=== PATIENT | male | born 1940 | race Caucasian/White ===

== ENCOUNTER → 2017-12-23 | Outpatient (CLI) | payer OTHER ==
[~2017-12-23] MED LIST: GADAVIST IV PRN
--- NOTE | 2017-12-23 15:16 | DIAGNOSTIC IMAGING REPORT ---
CERVICAL SPINE COMBO CLINICAL HISTORY: 77 years-old Male presenting with GAIT/FALLS,PROSTATE CA HX METS,ENCEPHALOPATHY. TECHNIQUE: Multisequence, multiplanar MR imaging of the cervical spine was performed before and after the administration of intravenous contrast. IV contrast: 11 mL of Gadavist. COMPARISON: None. FINDINGS: Localizer images: Unremarkable. Straightening of normal cervical lordosis due to extensive multilevel degenerative changes and partial osseous fusion across C5-C7. Vertebral bodies demonstrate heterogeneous bone marrow signal intensity but no focal T2 hyperintense or enhancing lesion. Extensive intervertebral disc desiccation with height loss and fluid in the disc space at C4-5. No associated endplate edema. This is likely degenerative in etiology. Essentially complete intervertebral disc space loss at the C5-6 and C6-7 levels, which may be postsurgical. Multilevel degenerative changes further detailed below: C2-3: Small disc osteophyte complex/uncovertebral hypertrophy results in mild left neural foraminal narrowing. No significant spinal canal narrowing. C3-4: Disc osteophyte complex with severe focal posterior bony spurring along the eccentric left paramedian aspect results in severe effacement of the left lateral recess, severe left neural foraminal narrowing, displacement of the spinal cord to the right, and contouring of the left anterior aspect of the spinal cord (series 7 image 43). Degenerative change also results in moderate to severe right neural foraminal narrowing. C4-5: Disc osteophyte complex/uncovertebral hypertrophy mildly effaces the ventral thecal sac to a greater degree along the left paracentral aspect. No significant mass effect on the spinal cord. Moderate bilateral neural foraminal narrowing. C5-6: Disc osteophyte complex/uncovertebral hypertrophy with focal posterior bony spurring. This results in significant effacement of the anterior and central aspect of the spinal canal with contouring of the spinal cord. CSF signal intensity is maintained. Mild bilateral neural foraminal narrowing. C6-7: Disc osteophyte complex/uncovertebral hypertrophy results in mild to moderate effacement of the ventral thecal sac as well as mild to moderate bilateral neural foraminal narrowing. C7-T1: Disc osteophyte complex results in mild effacement of the ventral thecal sac and moderate bilateral neural foraminal narrowing. Cervical spinal cord maintains normal signal intensity despite mass effect and deformities detailed above. No abnormal enhancement of the spinal cord on postcontrast imaging. No epidural collection. Craniocervical junction normal. Paraspinal musculature normal. Remaining soft tissues within normal limits. IMPRESSION: 1. No focal osseous lesion to suggest metastatic disease. 2. Severe multilevel degenerative changes with severe spinal canal narrowing at C3-4 further detailed above. No abnormal spinal cord signal intensity to suggest edema or myelomalacia. Correlate clinically for symptoms of impingement. 3. Severe multilevel neural foraminal narrowing further detailed above. 4. Osseous fusion across C5-C7 may be degenerative or postsurgical. 5. Fluid in the C4-5 disc space is felt to be degenerative in etiology given the lack of bony edema. Electronically signed by: Fernando López M.D. 12/23/2017 3:15 PM Dictated Date/Time: 12/23/2017 3:07 PM
--- NOTE | 2017-12-23 15:25 | DIAGNOSTIC IMAGING REPORT ---
BRAIN COMBO HISTORY: 77 years-old Male ACUTE ENCEPHALOPATHY history of prostate cancer COMPARISON: Cervical spine MRI of same day TECHNIQUE: Multiplanar multisequence MRI of the brain was obtained both with and without the use of 11 amount Gadavist FINDINGS: Localizer images demonstrate no gross abnormality. There is an ovoid focus of restricted diffusion involving the right wright radiata with decreased signal on ADC map, nicely seen on images 14 and 15 of series 5 measuring up to 1.8 cm in length. There is slightly increased T2/FLAIR signal within this distribution along with minimal ill-defined increased T1 signal tracking into the region of the right lentiform nucleus seen on images 12 through 15 of series 8 with corresponding increased enhancement within this region. No additional acute or subacute infarction. Midline structures including the brainstem, optic chiasm, pituitary and pineal glands appear unremarkable in the sagittal T1 series. No cerebellar tonsillar herniation. Degenerative changes of the imaged cervical spine. There is moderate brain atrophy with ex vacuo ventriculomegaly. Advanced chronic microvascular ischemic changes seen with areas of low signal within the corpus callosum, genu and body suggesting prior infarction. Multiple remote lacunar infarctions about the basal ganglia and wright radiata. Major flow voids at the level of the skull base appear patent. Orbits are symmetric and unremarkable. Mastoid air cells are clear. Mild mucosal thickening of the ethmoid air cells. IMPRESSION: 1. Small subacute infarction of the right wright radiata with enhancing laminar necrosis of the right wright radiata extending into the right lentiform nucleus. No significant mass effect or midline shift. 2. Moderate atrophy with advanced chronic microvascular ischemic changes and multiple remote lacunar infarctions of the basal ganglia and periventricular white matter. The above report was generated using voice recognition software. It may contain grammatical, syntax or spelling errors. Electronically signed by: Travis Haile M.D. 12/23/2017 3:24 PM Dictated Date/Time: 12/23/2017 3:14 PM
== END | disposition home or self-care (01) ==
LOC: C.MRIBC 13:43
PROVIDERS: ATTEND Physical Medicine & Rehabilitation
DX: R26.9 Unspecified abnormalities of gait and mobility (principal); R29.6 Repeated falls; G93.40 Encephalopathy, unspecified; G31.9 Degenerative disease of nervous system, unspecified; M99.71 Connective tissue and disc stenosis of intervertebral foramina of cervical region

== ENCOUNTER → 2017-12-23 | Outpatient (CLI) | payer OTHER ==
[2017-12-23 09:01] LABS: BASO % 0.5 %; BASO ABS # 0.04 K/uL (0-0.2); EOS % 3.4 %; EOS ABS # 0.26 K/uL (0-0.5); HEMATOCRIT 36.2 % (42-52); HEMOGLOBIN 11.5 g/dL (14.0-18.0); IG# 0.02 K/uL (0.00-0.02); LYMPH % 20.1 %; LYMPH ABS # 1.52 K/uL (1.2-3.4); MEAN CELL VOLUME 97.1 fL (80-100); MEAN CORPUSCULAR HEMOGLOBIN 30.8 pg (25-34); MEAN CORPUSCULAR HGB CONC 31.8 g/dl (32-36); MEAN PLATELET VOLUME 8.7 fL (7.4-10.4); MONO % 8.8 %; MONO ABS # 0.67 K/uL (0.11-0.59); NEUT % 66.9 %; NEUT ABS # 5.07 K/uL (1.4-6.5); PLATELET COUNT 358 K/uL (130-400); RED CELL DISTRIBUTION WIDTH CV 15.2 % (11.5-14.5); RED CELL DISTRIBUTION WIDTH SD 53.2 fL (36.4-46.3); WHITE BLOOD COUNT 7.58 K/uL (4.8-10.8)
[2017-12-23 09:14] LABS: BLOOD UREA NITROGEN 22 mg/dl (7-18); CARBON DIOXIDE 31 mmol/L (21-32); CREATININE 0.93 mg/dl (0.60-1.40); GLUCOSE 88 mg/dl (70-99); POTASSIUM 3.8 mmol/L (3.5-5.1); SODIUM 137 mmol/L (136-145)
== END ==
LOC: C.LABCC 08:27
PROVIDERS: ATTEND Internal Medicine
DX: D64.9 Anemia, unspecified (principal)